=== PATIENT | female | born 1960 | race Caucasian/White ===

== ENCOUNTER 2017-07-04 21:18 | Emergency (ER) | payer OTHER ==
[~2017-07-04] VITALS: Ht 167.6 cm; Wt 93.9 kg
[~2017-07-04 21:18] MED LIST: ALLOPURINOL100 MG PO; CELEXA40 MG PO; CLARITIN10 M3 PO; DICLOFENAC SOD100 MG PO; FLEXERIL10 MG PO; FLUCONAZOLE100 MG PO; FRUITY CHEWS1 EACH PO; FUROSEMIDE20 MG PO; HYDROCODON-ACE1 EAC7 PO; LOPRESSOR25 MG PO; LOW DOSE ASPIRI81 M1 PO; NYSTATIN15 GM TP; SYNTHROID200 MCG PO; TOPIRAMATE25 MG PO; TRAZODONE HCL50 MG PO; ULTRAM50 MG PO; VITAMIN D34000 UNIT PO
[2017-07-05] MEDS ORDERED: PERCOCET 5/31 TABLET PO (01:37)
[2017-07-05] MEDS ORDERED: ZOFRAN ODT4 MG PO (01:37)
[2017-07-05 01:47] VITALS: BP 115/65
== END 2017-07-05 01:48 | disposition home or self-care (01) ==
LOC: EME 21:18
DX: S06.0X0A Concussion without loss of consciousness, initial encounter (principal); S30.0XXA Contusion of lower back and pelvis, initial encounter; S00.03XA Contusion of scalp, initial encounter; W01.0XXA Fall on same level from slipping, tripping and stumbling without subsequent striking against object, initial encounter; Z79.82 Long term (current) use of aspirin; Z98.84 Bariatric surgery status
CPT/HCPCS: 70450; 72220; 99281; 99283